=== PATIENT | male | born 1955 | race Caucasian/White ===

== ENCOUNTER 2016-12-26 08:41 | Observation (INO) | payer OTHER ==
[2016-12-26] MEDS ORDERED: SODIUM CHLORIDE 0.9% 1,000 ML IV STA (08:59)
[2016-12-26] MEDS ORDERED: NITROGLYCERIN SL TABS 0.4 MG TAB SUBLINGUAL STA (08:59)
--- NOTE | 2016-12-26 09:15 | ED ---
Chest Pain HPI - General Chief Complaint: Chest Pain Stated Complaint: CHEST TIGHTNESS,HYPERTENSION Time Seen by Provider: 12/26/16 08:50 Source: patient, RN notes reviewed Mode of arrival: wheelchair Limitations: no limitations - History of Present Illness Initial Comments: This is a 61-year-old male with a benign history other than vertigo who had the onset yesterday of just not feeling well and feeling tired well at work. He states today he noted his blood pressure was elevated was 189/123 normally he states is 120/65. He states he is retrosternal chest pressure was 5/10 severityof 4/10 does not really seem to get worse with exertion or better with any positional changes. He has no personal history of heart disease he is nonsmoker. He states there is a family history of hypertension and heart disease in his family with respect to his parents. He's had no cough fevers chills sweats or other symptoms. Some nausea perhaps no vomiting no abdominal pain MD Complaint: chest pain - Related Data Home Medications Medication Instructions Recorded Confirmed Aspirin 325 mg PO DAILY 12/26/16 12/26/16 Echinacea 500 mg PO DAILY PRN 12/26/16 12/26/16 Allergies Allergy/AdvReac Type Severity Reaction Status Date / Time No Known Allergies Allergy Verified 12/26/16 09:03 Review of Systems ROS Statement: Those systems with pertinent positive or pertinent negative responses have been documented in the HPI. ROS Other: All systems not noted in ROS Statement are negative. EKG Findings - EKG Results: EKG: interpreted by JERICHO WNL, sinus rhythm, normal axis, normal QRS, normal ST/ T, no acute changes (Normal sinus rhythm rate 62 VT interval 164 QRS duration 88 daily since QTC of 382/[address]-T wave changes.) Past Medical History Past Medical History: No Reported History History of Any Multi-Drug Resistant Organisms: None Reported Past Surgical History: Hernia Repair, Joint Replacement, Orthopedic Surgery Past Psychological History: No Psychological Hx Reported Smoking Status: Never smoker Past Alcohol Use History: None Reported Past Drug Use History: None Reported General Exam - General Exam Comments Initial Comments: This is a well-developed well-nourished awake alert oriented 3 male Limitations: no limitations General appearance: alert, in no apparent distress Head exam: Present: atraumatic, normocephalic, normal inspection Eye exam: Present: normal appearance, PERRL, EOMI. Absent: scleral icterus, conjunctival injection, periorbital swelling ENT exam: Present: normal exam, mucous membranes moist Neck exam: Present: normal inspection. Absent: tenderness, meningismus, lymphadenopathy Respiratory exam: Present: normal lung sounds bilaterally. Absent: respiratory distress, wheezes, rales, rhonchi, stridor Cardiovascular Exam: Present: regular rate, normal rhythm, normal heart sounds. Absent: systolic murmur, diastolic murmur, rubs, gallop, clicks GI/Abdominal exam: Present: soft, normal bowel sounds. Absent: distended, tenderness, guarding, rebound, rigid Extremities exam: Present: normal inspection, full ROM, normal capillary refill. Absent: tenderness, pedal edema, joint swelling, calf tenderness Back exam: Present: normal inspection Neurological exam: Present: alert, oriented X3, CN II-XII intact Psychiatric exam: Present: normal affect, normal mood Skin exam: Present: warm, dry, intact, normal color. Absent: rash Course Vital Signs 12/26/16 12/26/16 12/26/16 08:44 08:56 09:07 Temperature 98.3 F Pulse Rate 80 66 72 Respiratory 18 18 16 Rate Blood Pressure 192/95 165/100 156/99 O2 Sat by Pulse 98 98 94 L Oximetry 12/26/16 12/26/16 12/26/16 09:36 10:06 10:36 Temperature Pulse Rate 72 74 76 Respiratory 18 18 18 Rate Blood Pressure 138/86 130/80 138/77 O2 Sat by Pulse 96 94 L 95 Oximetry 12/26/16 11:06 Temperature Pulse Rate 74 Respiratory 18 Rate Blood Pressure 134/79 O2 Sat by Pulse 95 Oximetry - Reevaluation(s) Reevaluation #1: 12/26/16 12:09 Reevaluation the patient after nitroglycerin revealed improvement. Chest Pain MDM - MDM Review the x-ray shows no acute findings patient did seem to get relief from his nitroglycerin. He will be admitted for evaluation I did discuss the findings with the admitting hospitalist. Critical Care Time Critical Care Time: Yes Critical Care Time: 21 minutes of critical care time which includes initial history physical evaluation with labs and x-rays reevaluation the patient response to therapy. Discussion with patient family regarding the findings. Discussion with the admitting physician. Admission orders and documentation of the above. Disposition Clinical Impression: Chest pain, Unstable angina pectoris Disposition: ADMITTED IP TO THIS HOSP Condition: Stable
[2016-12-26 09:20] LABS: Basophils % (A) 1 %; CH 29.1; CHCM 35.4; Eosinophils # (A) 0.1 k/uL (0-0.7); Eosinophils % (A) 2 %; HCT 43.9 % (39.0-53.0); HDW 2.87; HGB 14.9 gm/dL (13.0-17.5); Luc # (Auto) 0.06; Luc % (Auto) 1; Lymphocytes % (A) 22 %; MCHC 33.9 g/dL (31.0-37.0); MCV 82.6 fL (80.0-100.0); Mean Platelet Volume 7.5; Monocytes # (A) 0.2 k/uL (0-1.0); Monocytes % (A) 5 %; Neutrophils # (A) 3.2 k/uL (1.3-7.7); Neutrophils % (A) 69 %; RBC 5.32 m/uL (4.30-5.90); RDW 12.6 % (11.5-15.5); WBC 4.6 k/uL (3.8-10.6); WBC (Perox) 4.65
[2016-12-26] MEDS ORDERED: NITROGLYCERIN OINT 1 INCH/GM PACKET TOPICAL STA (09:22)
--- NOTE | 2016-12-26 09:22 | XR ---
EXAMINATION TYPE: XR chest 2V DATE OF EXAM: 12/26/2016 9:14 AM COMPARISON: NONE HISTORY: Shortness of breath TECHNIQUE: Frontal and lateral views of the chest are obtained. FINDINGS: Scattered senescent parenchymal changes noted. Hyperinflation compatible with COPD. No evidence for infiltrate. No evidence for atelectasis. Heart size is stable. Mediastinal structures are stable and grossly unremarkable. No evidence for hilar prominence. Focal eventration left hemidiaphragm. IMPRESSION: 1. No evidence for acute pulmonary disease.
[2016-12-26 09:24] LABS: ALT 36 U/L (21-72); AST 27 U/L (17-59); Alkaline Phosphatase 70 U/L (38-126); Amylase 61 U/L (30-110); Anion Gap 12 mmol/L; Blood Urea Nitrogen 21 mg/dL (9-20); Calcium 9.2 mg/dL (8.4-10.2); Carbon Dioxide 25 mmol/L (22-30); Chloride 108 mmol/L (98-107); Glucose 99 mg/dL (74-99); Magnesium 1.7 mg/dL (1.6-2.3); Non-African American GFR(MDRD) >60 (>60 ml/min/1.73 sqM); Potassium 4.3 mmol/L (3.5-5.1); Sodium 145 mmol/L (137-145); Total Bilirubin 0.6 mg/dL (0.2-1.3); Total Protein 6.6 g/dL (6.3-8.2)
[2016-12-26 09:26] LABS: INR 1.1 (<1.1); Prothrombin Time 10.7 sec (9.0-12.0)
[2016-12-26 10:09] LABS: Creatine Kinase 232 U/L (55-170)
[2016-12-26 10:23] LABS: Troponin I <0.012 ng/mL (0.000-0.034)
[2016-12-26 10:35] LABS: Creatine Kinase MB 2.9 ng/mL (0.0-2.4)
[2016-12-26] MEDS ORDERED: NITROGLYCERIN SL TABS 0.4 MG TAB SUBLINGUAL PRN (12:10)
[2016-12-26] MEDS ORDERED: HEPARIN SODIUM,PORCINE 5,000 UNIT/ML 1 ML VIAL IV ONE (12:10)
[2016-12-26] MEDS ORDERED: SODIUM CHLORIDE 0.9% 1,000 ML IV SCH (12:15)
[2016-12-26] MEDS ORDERED: HEPARIN SODIUM,PORCINE/D5W PMX 25,000 UNIT in DEXTROSE/WATER 1 500ML.BAG IV SCH (12:15)
[2016-12-26] MEDS ORDERED: amLODIPine 5 MG TAB PO STA (14:48)
[2016-12-26 14:58] LABS: Creatine Kinase 176 U/L (55-170)
[2016-12-26 15:10] LABS: Creatine Kinase MB 2.3 ng/mL (0.0-2.4); Troponin I <0.012 ng/mL (0.000-0.034)
[2016-12-26] MEDS: NITROGLYCERIN OINT 1 INCH/GM PACKET TOPICAL SCH (19:26)
--- NOTE | 2016-12-26 19:32 | P.HPIM ---
History of Present Illness H&P Date: 12/26/16 61-year-old gentleman with no significant past medical history comes in to the hospital with this episode of chest pressure radiating to his neck patient stated that initially he thought it was GERD however he does not have a history of GERD in the past. States that it lasted for a prolonged period of time with concern for the pain patient came in the hospital for further evaluation. Initial EKG did not reveal any ST-T wave changes. Patient does have a significant family history of cardiac disease. Patient normally is able to ambulate without any difficulty or 2-3 blocks. Currently states that he symptom-free. Patient stated that since his onset of symptoms patient had the pain for about 12 hours no relieving or aggravating factors were reported in was mostly midsternal radiating to his neck Patient was started on IV heparin and triaged to observation unit. Review of Systems All systems: negative (Noted in HPI) Past Medical History Past Medical History: No Reported History Additional Past Medical History / Comment(s): Vertigo, low back pain, L ear had viral infection which caused hearing damage-hear little with this ear. History of Any Multi-Drug Resistant Organisms: None Reported Past Surgical History: Hernia Repair, Orthopedic Surgery Additional Past Surgical History / Comment(s): R inguinal hernia repair, R ankle fracture with ORIF, R shoulder arthroscopy, R knee arthroscopy, R thumb surgery. Past Psychological History: No Psychological Hx Reported Additional Psychological History / Comment(s): Pt resides with his spouse. He is independent. Smoking Status: Never smoker Past Alcohol Use History: None Reported Past Drug Use History: None Reported - Past Family History Father Family Medical History: Myocardial Infarction (NV) Additional Family Medical History / Comment(s): Father had a NV in his 60's. Mother Family Medical History: CVA/TIA, Hypertension Additional Family Medical History / Comment(s): Mother had heart problems. She had a CVA in her 50's. She at the age of 76yrs. Medications and Allergies Home Medications Medication Instructions Recorded Confirmed Type Aspirin 325 mg PO DAILY 12/26/16 12/26/16 History Echinacea 500 mg PO DAILY PRN 12/26/16 12/26/16 History Allergies Allergy/AdvReac Type Severity Reaction Status Date / Time No Known Allergies Allergy Verified 12/26/16 09:03 Physical Exam Vitals: Vital Signs Temp Pulse Pulse Resp BP BP Pulse Ox 12/26/16 15:01 18 12/26/16 13:10 98.4 F 77 18 143/84 95 12/26/16 12:24 98.3 F 79 18 134/81 94 L Intake and Output 12/26/16 12/26/16 12/26/16 06:59 14:59 22:59 Other: Weight 91.9 kg Patient Weight 12/27/16 06:59 Weight 91.9 kg Physical exam Gen. appearance oriented 3 in no distress Neck is supple no JVD Lungs good air entry clear to auscultation no rhonchi or wheezing Heart S1-S2 heard regular rate and rhythm no murmurs appreciated Abdomen is soft nontender no organomegaly bowel sounds are intact Neurologically cranial nerves II-12 grossly intact no focal motor or sensory deficits noted Skin no abnormalities appreciated Results CBC & Chem 7: 12/26/16 08:08 12/26/16 08:08 Labs: Abnormal Lab Results - Last 24 Hours (Table) 12/26/16 Range/Units 14:28 Total Creatine Kinase 176 H (55-170) U/L Thrombosis Risk Factor Assmnt - Choose All That Apply Any of the Below Risk Factors Present?: Yes Each Factor Represents 1 point: Age 41-60 years, Obesity (BMI >25) Other Risk Factors: No Other congenital or acquired thrombophilia - If yes, enter type in comment: No Thrombosis Risk Factor Assessment Total Risk Factor Score: 2 Thrombosis Risk Factor Assessment Level: Low Risk Assessment and Plan Plan: #1 atypical chest pain rule out ACS #2 suspicion for GERD Plan However even with suspicion of GERD with patient having some risk factors which include family history. ACS needs to be ruled out cardiac enzymes will be done. A cardiac consult will be of pain in regards to have an a stress test. Once that's done patient can likely be discharged in the next 24 hours. Pepcid 20 mg IV twice a day.
[2016-12-26 19:58] LABS: Creatine Kinase 162 U/L (55-170)
[2016-12-26 20:10] LABS: Creatine Kinase MB 1.8 ng/mL (0.0-2.4); Troponin I <0.012 ng/mL (0.000-0.034)
[2016-12-26] MEDS ORDERED: HEPARIN SODIUM,PORCINE 5,000 UNIT/ML 1 ML VIAL IV PRN (21:22)
[2016-12-27] MEDS: NITROGLYCERIN OINT 1 INCH/GM PACKET TOPICAL SCH ×2 (01:45→06:36)
[2016-12-27] MEDS: FAMOTIDINE 20 MG TAB PO SCH ×3 (01:45→19:59)
[2016-12-27 08:12] LABS: Cholesterol 167 mg/dL (<200); HDL Cholesterol 47 mg/dL (40-60); Triglycerides 115 mg/dL (<150)
[2016-12-27] MEDS ORDERED: ASPIRIN 325 MG TAB PO SCH (09:00)
[2016-12-27] MEDS ORDERED: LOSARTAN 25 MG TAB PO SCH (12:15)
--- NOTE | 2016-12-27 12:32 | CONS ---
DATE OF CONSULTATION: Mr. Frye is a 61-year-old male patient who started experiencing pressure and tightness in the left pectoral area, close to his shoulder area and under the left clavicle. He took his blood pressure and it was very high. This is unusual for him. He normally does not have high blood pressure. Repeat blood pressure measurements were high and he continued to have the discomfort so he came to the hospital. His 12-lead ECG upon admission was completely normal. There are no ST segment abnormalities, but his blood pressure was definitely elevated. His first blood pressure was 192/97 mmHg and 165/100 mmHg. Subsequently 156/99 and now it is more in the normal range. He denied any stressful events recently. REVIEW OF SYSTEMS: No fever, chills, rigors. No cough or expectoration. No nausea, vomiting or diarrhea. No hematuria or dysuria. No strokes or seizures. No skin lesions or musculoskeletal complaints. MEDICATIONS: None. He denies any diabetes. He denies a history of hypertension, denies dyslipidemia. He does take an aspirin. PAST SURGERIES: Hernia repair and joint replacement. SOCIAL HISTORY: He is a never smoker. On examination, his blood pressure is in 130s now, heart rates are normal. He is afebrile 98.1. Head and neck examination is normal. Heart sounds are normal. No chest wall tenderness. Abdomen is soft, nontender. Extremities are warm. No edema. IMPRESSION: 1. Elevated blood pressure with symptoms of chest tightness and without any ECG changes. Cardiac enzymes are normal. Labs are normal. Potassium is normal. Renal function is normal. Hemoglobin is normal. 2. His HDL is 47, nonproductive. LDL is 97, total cholesterol 167, triglycerides 115. SUGGEST: Blood pressure control, stop heparin, stop nitro paste, stop full aspirin, stop all IV fluids and Hep-Lock. He is on one dose of p.o. amlodipine. I would suggest treating him with 25 mg of losartan or 5 mg of amlodipine, either one is fine and definitely reduce the dose of aspirin to 81 mg p.o. daily for now. The fact that his blood pressure is completely normal and stays normal, aspirin may even be withheld. This gentleman has not had an acute myocardial infarction. He should be able to go home tomorrow if his blood pressure is normal and then I will follow him as an outpatient. I will also check a TSH level and a cortisol level, Specifically, his potassium was normal.
--- NOTE | 2016-12-27 20:23 | P.PN ---
Subjective 61-year-old gentleman with no significant past medical history comes in to the hospital with this episode of chest pressure radiating to his neck patient stated that initially he thought it was GERD however he does not have a history of GERD in the past. States that it lasted for a prolonged period of time with concern for the pain patient came in the hospital for further evaluation. Initial EKG did not reveal any ST-T wave changes. Patient does have a significant family history of cardiac disease. Patient normally is able to ambulate without any difficulty or 2-3 blocks. Currently states that he symptom-free. Patient stated that since his onset of symptoms patient had the pain for about 12 hours no relieving or aggravating factors were reported in was mostly midsternal radiating to his neck y a Patient was started on IV heparin and triaged to observation unit. 12/27/16 Pt was given a dose of norvasc on admission . Changed to losartan at this time. Heaprin was discontinued. Denies having any additional complaints. Objective - Vital Signs Vital signs: Vital Signs Temp 98.2 F 12/27/16 15:54 Pulse 72 12/27/16 16:00 Resp 16 12/27/16 16:00 BP 154/90 12/27/16 15:54 Pulse Ox 97 12/27/16 15:54 Intake & Output 12/27/16 12/27/16 12/28/16 06:59 18:59 06:59 Intake Total 223 500 Balance 223 500 Intake: Intake, IV Titration 223 Amount Heparin Sodium,Porcine/ 223 D5w Pmx 25,000 unit In Dextrose/Water 1 500ml. bag @ 10.9 UNITS/KG/HR 20 .07 mls/hr IV .Q24H NIEVES Rx#:[id number] Oral 500 Other: Voiding Method Toilet Toilet # Voids 0 - Exam Gen; alert oriented times 3, in no distress Lungs CTA b/l, no rhonchi, wheezing, or crackles HEart RRR< no murmurs appreciated. Abdomen soft non tender no organomegaly. Neuro cranial nerves intact, no focal motor or sensory deficits ntoed. Lower extremities no edema noted. - Labs CBC & Chem 7: 12/26/16 08:08 12/26/16 08:08 Assessment and Plan Plan: #1 atypical chest pain rule out ACS #2 suspicion for GERD # 3 Accelerated HTN Plan Moniter Bp for another 24 hrs as recommended by cardiology ACS is ruled out. D/c home padma.
[2016-12-28 08:14] VITALS: RESP 18
[2016-12-28] MEDS: FAMOTIDINE 20 MG TAB PO SCH (08:51)
[2016-12-28] MEDS ORDERED: LOSARTAN 25 MG TAB PO SCH (09:00)
[2016-12-28 12:38] VITALS: BP 154/98; PULSE 72; TEMP 98.9
--- NOTE | 2016-12-28 17:33 | P.DS ---
Providers Date of admission: 12/26/16 12:11 Attending physician: Enzo Torres MD Primary care physician: [facility] Course: 61-year-old gentleman with no significant past medical history comes in to the hospital with this episode of chest pressure radiating to his neck patient stated that initially he thought it was GERD however he does not have a history of GERD in the past. States that it lasted for a prolonged period of time with concern for the pain patient came in the hospital for further evaluation. Initial EKG did not reveal any ST-T wave changes. Patient does have a significant family history of cardiac disease. Patient normally is able to ambulate without any difficulty or 2-3 blocks. Currently states that he symptom-free. Patient stated that since his onset of symptoms patient had the pain for about 12 hours no relieving or aggravating factors were reported in was mostly midsternal radiating to his neck y a Patient was started on IV heparin and triaged to observation unit. 12/27/16 Pt was given a dose of norvasc on admission . Changed to losartan at this time. Heaprin was discontinued. Denies having any additional complaints. Gen; alert oriented times 3, in no distress Lungs CTA b/l, no rhonchi, wheezing, or crackles HEart RRR< no murmurs appreciated. Abdomen soft non tender no organomegaly. Neuro cranial nerves intact, no focal motor or sensory deficits ntoed. Lower extremities no edema noted. - Labs CBC & Chem 7: 12/26/16 08:08 12/26/16 08:08 Assessment and Plan Plan: #1 atypical chest pain rule out ACS #2 suspicion for GERD # 3 Accelerated HTN Right shoulder supraspinatus tendinitis. ACS was ruled out. Patient was started on losartan 25 mg initially however patient had some isolated blood pressures that were elevated and it was felt that patient's losartan will be increased to 25 mg by mouth twice a day. Patient will follow up with cardiology. symptom-free was able to ambulate without any difficulty and Patient's blood pressure was stable on discharge. . Patient Condition at Discharge: Stable Plan - Discharge Summary Discharge Medication List Aspirin 325 mg PO DAILY 12/26/16 [History] Echinacea 500 mg PO DAILY PRN 12/26/16 [History] Losartan [Cozaar] 25 mg BID 12/28/16 [History] Follow up Appointment(s)/Referral(s): Walt Mena MD [STAFF PHYSICIAN] - (Office will call you with a follow up appointment with Dr. Mena) Ascencion Connolly DO [Primary Care Provider] - 1-2 days Discharge Disposition: HOME SELF-CARE
== END 2016-12-28 15:56 | disposition home or self-care (01) ==
LOC: EC 08:41 → 3OBS 12:11
PROVIDERS: ADMIT Internal Medicine; ATTEND Internal Medicine
DX: R07.89 Other chest pain (principal); I10 Essential (primary) hypertension; M75.81 Other shoulder lesions, right shoulder; Z79.82 Long term (current) use of aspirin; Z82.3 Family history of stroke; Z82.49 Family history of ischemic heart disease and other diseases of the circulatory system
CPT/HCPCS: 36415; 93005; 85379; 83880; 80061; 80053; 84443; 82533; 82150; 82550; 82553; 83690; 83735; 84484; 85025; 85610; 85730; 71020; 99291; 96365; 96376; 96361; G0378 ×3; J1644 ×2; 96366

== ENCOUNTER → 2018-11-12 | Outpatient (CLI) | payer BC ==
--- NOTE | 2018-11-12 14:48 | XR ---
EXAMINATION TYPE: XR chest 2V DATE OF EXAM: 11/12/2018 COMPARISON: 12/26/2016 INDICATION: Short of breath, cough TECHNIQUE: Frontal and lateral views of the chest are obtained. FINDINGS: The heart size is normal. The pulmonary vasculature is normal. The lungs are clear. There is mild elevation of the lateral left diaphragm. This is chronic. IMPRESSION: 1. No acute pulmonary process.
== END | disposition home or self-care (01) ==
LOC: RADXRYALE 14:10
PROVIDERS: ATTEND Physician Assistant Medical
DX: R05 Cough (principal); R06.02 Shortness of breath
CPT/HCPCS: 71046

== ENCOUNTER → 2019-07-28 | Outpatient (CLI) | payer BC ==
--- NOTE | 2019-07-28 16:46 | XR ---
PROCEDURE: XR cervical spine comp - 5V DATE AND TIME: 07/28/2019 4:24 PM CLINICAL INDICATION: [facility]; [id number] CERVICALGIA,NINA SHLD PAIN TECHNIQUE: Department protocol COMPARISON: None FINDINGS: There is no fracture or focal skeletal lesion. Multilevel moderately advanced cervical spondylosis changes are noted, most advanced at the C6-7 and C7-T1 levels, but also impressive at the C5-6 and C4-5 and C3-4 levels. At C3-4 there is 2 mm retroli sthesis of C3 with respect to C3-4, appearing degenerative in etiology. No other malalignment. The soft tissues are unremarkable. IMPRESSION: NO ACUTE PROCESS.
== END | disposition home or self-care (01) ==
LOC: RADXRYALE 16:15
PROVIDERS: ATTEND Physician Assistant Medical
DX: M54.2 Cervicalgia (principal)
CPT/HCPCS: 72050

== ENCOUNTER → 2019-08-12 | Outpatient (CLI) | payer BC ==
--- NOTE | 2019-08-12 22:52 | MR ---
MRI CERVICAL SPINE: CLINICAL HISTORY: Cervicalgia and radiculopathy. TECHNIQUE: Multiplanar, multisequence imaging of the cervical spine is performed without IV contrast. COMPARISON cervical spine x-ray July 28, 2019. FINDINGS: Sagittal images of the cervical spine show the craniocervical junction to appear within nor mal limits. There is grade 1 retrolisthesis of C3 on C4. Spondylolisthesis along with disc herniation and uncovertebral facet arthropathy causes most prominent spinal canal stenosis at this level sagitt al image 9, small focus of increased signal in the spinal cord superior C4 level is seen. The vertebr al body heights are normal. Mild to moderate disc space narrowing C3-C4 level is present. The bone m arrow signal intensity is within normal limits. Axial images at the C2-C3 level shows right precentral disc protrusion effacing the anterior thecal s ac and bilateral neural foramina are patent. Axial images at C3-C4 level show vertebral facet degenerative changes bilaterally along with spondylo listhesis and broad-based posterior disc protrusion, there is effacement of anterior thecal sac and m oderate to advanced bilateral neural foraminal narrowing. Slight flattening of the cord with increase d signal is noted on axial images. Axial images at C4-C5 level showed broad based right paracentral/central disc protrusion and right-si ded uncovertebral facet degenerative changes, there is effacement of the anterolateral thecal sac and fairly advanced right-sided neural foraminal narrowing. There is [id number] left-sided neural foraminal narrowing felt present. Axial images at C5-C6 level showed broad based left paracentral/foraminal disc protrusion effacing ve ntral thecal sac and causing advanced left-sided neural foraminal narrowing. Axial images at the C6-C7 levels show broad-based posterior disc protrusion mildly facing anterior th ecal sac and causing mild right and moderate to advanced left-sided neural foraminal narrowing. Axial images at C7-T1 level show right foraminal disc protrusion effacing the anterolateral thecal sa c and causing asymmetric moderate right-sided neural foraminal narrowing. IMPRESSION: Multilevel degenerative changes in cervical spine as detailed above. Attention to C3-C4 l evel where most prominent findings are noted, some mass effect on cord is felt present.
== END | disposition home or self-care (01) ==
LOC: RADMRIMAIN 19:10
PROVIDERS: ATTEND Physician Assistant Medical
DX: M47.22 Other spondylosis with radiculopathy, cervical region (principal); M53.82 Other specified dorsopathies, cervical region
CPT/HCPCS: 72141

== ENCOUNTER → 2019-10-22 | Outpatient (CLI) | payer OTHER ==
--- NOTE | 2019-10-22 11:06 | XR ---
EXAMINATION TYPE: XR chest 2V DATE OF EXAM: 10/22/2019 COMPARISON: 11/12/2018 HISTORY: Shortness of breath TECHNIQUE: Frontal and lateral views of the chest are obtained. FINDINGS: Scattered senescent parenchymal changes noted. Hyperinflation compatible with COPD. No evidence for infiltrate. No evidence for atelectasis. Chronic elevation left hemidiaphragm. Heart size is stable. Mediastinal structures are stable and grossly unremarkable. No evidence for hilar prominence. Degenerative changes dorsal spine. IMPRESSION: 1. No evidence for acute pulmonary disease.
== END | disposition home or self-care (01) ==
LOC: RADXRYALE 10:25
PROVIDERS: ATTEND Physician Assistant Medical
DX: Z01.811 Encounter for preprocedural respiratory examination (principal)
CPT/HCPCS: 71046

== ENCOUNTER 2019-11-02 11:32 | Day surgery (SDC) | payer BC, OTHER ==
[2019-10-26 14:33] VITALS: BMI 26.0
[~2019-11-02 11:32] MED LIST: BACITRACIN 50,000 UNIT, POLYMYXIN B 500,000 UNIT in SODIUM CHLORIDE 0.9% IRRIGATIO 1,00... IRRIGATION ONE; HYDROmorphone 0.5 MG/0.5 ML SYRINGE IVP PRN; LIDOCAINE 1% 20 ML VIAL (10MG/ML) FOR IV START INTRADERMA PRN; ONDANSETRON 4 MG/2 ML VIAL IVP ONE
[2019-11-02] MEDS: LACTATED RINGERS 1,000 ML IV SCH (12:20)
[2019-11-02] MEDS ORDERED: SCOPOLAMINE 1.5MG/72HR PATCH TRANSDERM ONE (12:28)
[2019-11-02] MEDS ORDERED: NEOSTIGMINE 1 MG/ML 10 ML VIAL ONE (12:30)
[2019-11-02] MEDS ORDERED: MIDAZOLAM 2 MG/2 ML VIAL ONE (12:30)
[2019-11-02] MEDS ORDERED: PROPOFOL 10 MG/ML 20 ML VIAL IV ONE (12:30)
[2019-11-02] MEDS ORDERED: fentaNYL (PF) 50 MCG/ML 2 ML AMP ONE (12:30)
[2019-11-02] MEDS ORDERED: WATER FOR INJECTION, STERILE 10 ML VIAL IV ONE (12:30)
[2019-11-02] MEDS ORDERED: GLYCOPYRROLATE 0.2 MG/ML 2 ML VIAL ONE (12:30)
[2019-11-02] MEDS ORDERED: ePHEDrine SULFATE/0.9% NACL/PF 50 MG/5 ML SYRINGE IV ONE (12:30)
[2019-11-02] MEDS ORDERED: DEXAMETHASONE SOD PHOS (MDV) 100 MG/10 ML VIAL ONE (12:30)
[2019-11-02] MEDS ORDERED: HYDROmorphone (PF) 1 MG/ML ONE (12:30)
[2019-11-02] MEDS ORDERED: LIDOCAINE 1% INJ 10MG/ML (20 ML MDV) ONE (12:30)
[2019-11-02] MEDS ORDERED: ROCURONIUM BROMIDE 10 MG/ML 10 ML VIAL IV ONE (12:30)
[2019-11-02] MEDS ORDERED: PHENYLEPHRINE-0.9% NACL SYG 1 MG/10 ML SYRINGE ONE (12:30)
[2019-11-02] MEDS ORDERED: SUCCINYLCHOLINE CHLORIDE 100 MG/5 ML SYR IV ONE (12:30)
[2019-11-02] MEDS ORDERED: GELATIN SPONGE,ABSORB (SMALL) 1 EACH SPONGE TOPICAL ONE (13:16)
[2019-11-02] MEDS ORDERED: BUPIVACAINE-EPI 0.5%-1:200,000 10 ML VIAL SQ ONE ×2 (13:16→15:07)
[2019-11-02] MEDS ORDERED: THROMBIN (BOVINE) 5,000 UNIT VIAL TOPICAL ONE (13:17)
[2019-11-02] MEDS ORDERED: LACTATED RINGERS 1,000 ML IV ONE (13:45)
--- NOTE | 2019-11-02 14:21 | XR ---
EXAMINATION TYPE: XR cervical spine 1V DATE OF EXAM: 11/02/2019 COMPARISON: MRI cervical spine August 12, 2019. HISTORY: Neck pain. TECHNIQUE: Single crosstable lateral view of cervical spine is obtained intraoperatively. FINDINGS: Exam is for surgical planning and not for diagnostic purposes. Persistent grade 1 retrolist hesis C3 on C4. Metallic pointer noted at C3-C4 disc space level. IMPRESSION: As above.
--- NOTE | 2019-11-02 15:13 | XR ---
EXAMINATION TYPE: XR cervical spine 1V DATE OF EXAM: 11/02/2019 COMPARISON: MRI cervical spine August 12, 2019. Cervical spine x-ray earlier today HISTORY: Hardware placement, cervical fusion. TECHNIQUE: Single crosstable lateral view of cervical spine is obtained immediately postoperatively. FINDINGS: There is anterior fusion plate now present C3-C6 levels with artificial rectangular disc ma terial anteriorly in the disc spaces. Persistent moderate disc space narrowing C6-C7 level. Alignment is stable. Overlying ET tube noted. IMPRESSION: As above.
[2019-11-02] MEDS ORDERED: HYDROmorphone 1 MG/ML 1 ML SYRINGE IVP PRN (15:29)
[2019-11-02] MEDS ORDERED: MAGNESIUM HYDROXIDE 2,400 MG/10 ML CUP PO PRN (15:29)
[2019-11-02] MEDS ORDERED: BENZOCAINE/MENTHOL LOZENG 1 EACH LOZENGE MUCOUS MEM PRN (15:29)
[2019-11-02] MEDS ORDERED: HYDROmorphone 0.5 MG/0.5 ML SYRINGE IVP PRN (15:29)
[2019-11-02] MEDS ORDERED: ONDANSETRON 4 MG/2 ML VIAL IVP PRN (15:30)
[2019-11-02] MEDS ORDERED: ACETAMINOPHEN TAB 325 MG TAB PO PRN (15:30)
[2019-11-02] MEDS ORDERED: HYDROcodone/APAP 5-325MG 1 EACH TAB PO PRN (15:30)
--- NOTE | 2019-11-02 15:36 | P.OP ---
Date of Procedure: 11/02/19 Preoperative Diagnosis: Cervical myelopathy, severe cervical stenosis C3 4 C4 5 C5 6, cervical myelomalacia, upper extremity weakness, cervical radiculopathy, degenerative disc disease Postoperative Diagnosis: Cervical myelopathy, severe cervical stenosis C3 4 C4 5 C5 6, cervical m yelomalacia, upper extremity weakness, cervical radiculopathy, degenerative disc disease Anesthesia: GETA Pathology: none sent Condition: stable Disposition: PACU Description of Procedure: BRIEF OPERATIVE NOTE Preoperative Diagnosis:Cervical myelopathy, severe cervical stenosis C3 4 C4 5 C5 6, cervical myelomalacia, upper extremity weakness, cervical radiculopathy, degenerative disc disease Postoperative Diagnosis:Cervical myelopathy, severe cervical stenosis C3 4 C4 5 C5 6, cervical myelomalacia, upper extremity weakness, cervical radiculopathy, degenerative disc disease Procedure: Anterior cervical decompression with discectomy and fusion C3 4 C4 5 C5 6 Placement of interbody graft C3 4 C4 5 C5 6 Application of anterior cervical plate C3 4 5 6 Surgeon: Dr. Davila Radiology Director: Additional Surgical scrub nurse as an virtual assistant for advertisers Anesthesia: General anesthesia per Dr. Gonzáles Estimated blood loss: Approximately 100 mL Complications: None apparent Components implanted: K2M Seeley anterior cervical plate system with a 63 mm plate with 8 screws and Vikos interbody allograft bone graft with 1 mL of DBX bone putty Disposition: To recovery room in good stable condition. OPERATIVE INDICATIONS The patient has had long-standing issues in their neck and upper extremities. He's been having significant worsening with his function is upper extremities and some pain and weakness at his upper extremities and neck. He was found have severe cervical stenosis with evidence of cervical myelopathy and myelomalacia. He had severe stenosis at C3 4 C4 5 and C5 6 which correlated well with his neck and upper extremity symptoms. The patient has been through conservative treatment. Despite conservative treatment he was having worsening of his overall symptoms. We discussed various treatment options including surgery, and the patient wishes to proceed with surgery We discussed the risk, patient's alternatives and benefits of surgery including but not limited to, risk of bleeding risk of infection, risk of need for further surgery, risk of decreased, loss of motion, muscle function, malunion nonunion, hardware failure, nerve damage, paralysis, heart attack, and . OPERATIVE SUMMARY After discussing all the risks, patient alternatives and benefits at length, the patient elected to proceed with surgical intervention, signed informed consent, and presented for their procedure. The patient was seen and examined in the pre operative holding area and the surgical site was marked. The patient was given antibiotics and brought to the operating room. The patient was positioned on the operating room table in a supine position being careful to pad any bony prominences and pressure points. The patient was sedated and intubated by anesthesia in standard fashion. Once the airway and C- spine were stabilized the patient's arms were padded and tucked at her side, with her shoulders gently taped. The head was placed in a donut pad with the neck in good neutral alignment and position. We were careful to maintain the patient's cervical spine and good neutral alignment and position throughout. The patient was prepped and draped in a normal standard fashion. An appropriate timeout and keystone protocol performed. We were able to proceed with the surgery. The local wound area was infiltrated with local anesthetic. An incision was made transversely approximately 2-1/2 cm over the appropriate levels at C4 5. Dissection was taken down subcutaneously to the level of the platysma which was split in line with its fibers. Dissection was taken with a carotid approach, with the trachea and esophagus medial and the carotid sheath laterally. We dissected down to the anterior surface of the vertebral bodies. Intraoperative x-ray was taken which showed a marker at the appropriate level at C5 3 4. With the appropriate level positively confirmed, we were able to proceed with discectomy at the appropriate levels. I started first at C3 4 and then moved to C4 5 and C5 6. All of the operative levels were exposed appropriately. The patient had all their twitches back, and there was no evidence of recurrent laryngeal issue. The wound was copiously irrigated and suctioned dry as had been done periodically throughout the case. At the appropriate level/levels, starting first at C3 4 and the moving C4 5 and C5 6 I established an annulotomy with an 11 blade scalpel. A discectomy was performed with a combination of pituitary rongeurs, curettes, a high-speed bur, and Kerrison rongeurs. The posterior longitudinal ligament was taken down as were any posterior osteophytes. There was severe central and bilateral foraminal stenosis at each level most severely at C3 4. The decompression with discectomy and removal of the posterior ledge ligament and posterior osteophytes was performed at each level. This gave good central and bilateral foraminal decompression. There is no evidence of any dural tear or leak. The endplates were prepared with a high-speed bur. With the endplates in good parallel po sition, I was able to size for the appropriate size interbody graft. The wound was irrigated and suctioned dry the graft was prepared and malleted into position. It had good alignment and position with the anterior surface flush with the anterior surface of the vertebral bodies. This was done similarly the appropriate levels at C3 4 C4 5 and C5 6. With the grafts intact, I was able to measure and contour and appropriate sized plate. The plate was positioned at the midline over the appropriate levels from C3 to C6. Screw holes were established with a hand drill and drill guide. Screws were placed in good alignment and position with excellent bony purchase. They were seated under the locking device. The construct was checked and found to be stable. Intraoperative x-ray was taken which showed good alignment and position of the implants at the appropriate levels. There was no evidence of any dural tear or leak. Good hemostasis was maintained. The wound was copiously irrigated and suctioned dry as had been done periodically throughout the case. The platysma was closed with absorbable suture. The subcutaneous tissue was closed. The subcuticular tissue was closed with absorbable suture. The wound was cleaned and dried and dressed appropriately. A soft cervical collar was placed appropriately. The patient was woken up by anesthesia, extubated, transferred back gently to their hospital bed and brought to the recovery room in good stable condition. The patient will be admitted to the hospital for appropriate postoperative care, medical management and monitoring. We will continue to follow them closely about the postoperative course.
[2019-11-02] MEDS: SODIUM CHLORIDE 0.9% 1,000 ML IV SCH (16:36)
[2019-11-02 17:59] VITALS: RESP 15
[2019-11-02] MEDS: ATORVASTATIN 10 MG TAB PO SCH ×2 (20:29→20:38)
[2019-11-02] MEDS: LOSARTAN 25 MG TAB PO SCH ×2 (20:30→20:37)
[2019-11-03 03:24] VITALS: TEMP 98.6
[2019-11-03] MEDS: SODIUM CHLORIDE 0.9% 1,000 ML IV SCH (04:04)
[2019-11-03] MEDS: LACTATED RINGERS 1,000 ML IV SCH (04:06)
[2019-11-03 06:20] VITALS: BP 114/67; PULSE 79
[2019-11-03] MEDS: LOSARTAN 25 MG TAB PO SCH (07:11)
[2019-11-03] MEDS ORDERED: SENNOSIDES-DOCUSATE SODIUM 1 EACH TAB PO SCH (09:00)
[2019-11-03] MEDS ORDERED: ASPIRIN 81 MG PO SCH (09:00)
== END 2019-11-03 13:00 | disposition home or self-care (01) ==
LOC: OR 11:32 → 4SSUR 15:09 → OR 11-03 13:00
PROVIDERS: ATTEND Orthopaedic Surgery Orthopaedic Surgery of the Spine
DX: M50.01 Cervical disc disorder with myelopathy, high cervical region (principal); M50.11 Cervical disc disorder with radiculopathy, high cervical region; M48.02 Spinal stenosis, cervical region; G95.89 Other specified diseases of spinal cord; M43.12 Spondylolisthesis, cervical region; I10 Essential (primary) hypertension; H91.90 Unspecified hearing loss, unspecified ear; R26.81 Unsteadiness on feet; R42 Dizziness and giddiness; R51 Headache; E78.2 Mixed hyperlipidemia; Z79.899 Other long term (current) drug therapy; Z79.82 Long term (current) use of aspirin; Z98.890 Other specified postprocedural states; Z88.8 Allergy status to other drugs, medicaments and biological substances; Z87.81 Personal history of (healed) traumatic fracture; Z82.49 Family history of ischemic heart disease and other diseases of the circulatory system
CPT/HCPCS: 22551; 22552 ×2; 22845; 20930; 20931; 86900; 86901; 86850; 72020; 36415; C1713 ×2; C1762; J2250; J2710; J0690 ×2; J2405; J2001; J3010; J1170; J1100; J2370; J0330; J2704

== ENCOUNTER → 2020-04-13 | Outpatient (CLI) | payer OTHER ==
--- NOTE | 2020-04-13 10:18 | XR ---
EXAMINATION TYPE: XR shoulder complete LT DATE OF EXAM: 04/13/2020 CLINICAL HISTORY: pain COMPARISON: NONE TECHNIQUE: Three views of the left shoulder are obtained. FINDINGS: There is no acute fracture/dislocation evident. The acromioclavicular and glenohumeral josy int spaces appear within normal limits. The visualized ribs are intact and unremarkable. IMPRESSION: 1. There is no acute fracture or dislocation. ICD 10 NO FRACTURE, INITIAL EVALUATION
== END | disposition home or self-care (01) ==
LOC: RADXRYALE 09:36
PROVIDERS: ATTEND Physician Assistant Medical
DX: M25.512 Pain in left shoulder (principal); W01.0XXD Fall on same level from slipping, tripping and stumbling without subsequent striking against object, subsequent encounter

== ENCOUNTER → 2023-10-30 | Outpatient (CLI) | payer MEDICARE ==
--- NOTE | 2023-10-30 18:56 | CT ---
EXAMINATION TYPE: CT brain wo con CT DLP: 1133.3 mGycm, Automated exposure control for dose reduction was used. DATE OF EXAM: 10/30/2023 4:32 PM COMPARISON: None. CLINICAL INDICATION:Male, 67 years old with history of R29.6 REPEAT FALLS R42 DIZZINESS GIDDINESS, di zziness while laying down x months TECHNIQUE: Brain: Axial CT images of the brain were obtained with coronal and sagittal reformats created and rev iewed. Contrast used: None. Oral contrast used: None. FINDINGS: Brain: Extra-axial spaces: No abnormal extra-axial fluid collections. Ventricular system: Within normal limits Cerebral parenchyma: No acute intraparenchymal hemorrhage or mass effect. The ross-white junction is well differentiated. Cerebellum: Unremarkable. Mass effect: No evidence of midline shift. Intracranial vasculature: unremarkable Soft tissues: Normal. Calvarium/osseous structures: No depressed skull fracture. Paranasal sinuses and mastoid air cells: Mild scattered paranasal sinus disease. Visualized orbits: Orbital contents are intact. IMPRESSION: No acute intracranial process.
== END | disposition home or self-care (01) ==
LOC: RADCTMAIN 15:34
PROVIDERS: ATTEND Family Medicine
DX: R29.6 Repeated falls (principal); R42 Dizziness and giddiness
CPT/HCPCS: 70450

== ENCOUNTER → 2023-12-23 | Outpatient (CLI) | payer MEDICARE ==
--- NOTE | 2023-12-23 16:13 | XR ---
EXAMINATION TYPE: XR wrist complete LT DATE OF EXAM: 12/23/2023 COMPARISON: NONE HISTORY: 68-year-old male [id number], [id number] LT WRIST PAIN, FALL TECHNIQUE: 4 views FINDINGS: Mild degenerative change first CMC joint. The radiocarpal and distal radial ulnar joint as well as th e midcarpal compartment are intact. No acute fracture, subluxation, dislocation is seen. Moderate deg enerative change second MCP joint and mild at the first and third MCP joint. IMPRESSION: 1. Mild osteoarthritic change at the basal joint of the thumb as well as the first and third MCP join ts. More moderate OA at the second MCP joint. 2. No acute osseous abnormality seen.
== END | disposition home or self-care (01) ==
LOC: RADXRYALE 10:55
PROVIDERS: ATTEND Physician Assistant Medical
DX: M19.042 Primary osteoarthritis, left hand (principal); W01.0XXA Fall on same level from slipping, tripping and stumbling without subsequent striking against object, initial encounter

== ENCOUNTER → 2024-10-06 | Outpatient (CLI) | payer MEDICARE ==
--- NOTE | 2024-10-06 16:24 | XR ---
EXAMINATION TYPE: XR shoulder complete LT DATE OF EXAM: 10/06/2024 4:18 PM COMPARISON: None CLINICAL INDICATION: Male, 68 years old with history of [id number] LT SHLD PAIN,FALL; [facility] TECHNIQUE: XR shoulder complete LT; examined in AP, internally rotated and scapular Y projections. FINDINGS: No evidence of acute osseous pathology, joint dislocation, or soft tissue swelling. The remaining po rtions of the visualized chest are unremarkable. Degeneration changes of the acromion, distal clavic le with osteophyte formation. There is osteophyte formation of the glenoid and humeral head. There is joint space narrowing of glenohumeral joint. IMPRESSION: 1. No acute osseous pathology. 2. Mild shoulder osteoarthrosis. [facility], , 10/06/2024 4:21 PM
== END | disposition home or self-care (01) ==
LOC: RADXRYALE 16:03
PROVIDERS: ATTEND Physician Assistant Medical
DX: M19.012 Primary osteoarthritis, left shoulder (principal); W01.0XXA Fall on same level from slipping, tripping and stumbling without subsequent striking against object, initial encounter

== ENCOUNTER → 2025-02-26 | Outpatient (CLI) | payer MEDICARE ==
--- NOTE | 2025-02-26 11:22 | XR ---
EXAMINATION TYPE: XR hand complete LT DATE OF EXAM: 02/26/2025 CLINICAL INDICATION: Male, 69 years old with history of [id number] LT HAND PAIN, pain TECHNIQUE: Frontal, lateral and oblique images of the left are obtained. COMPARISON: None. FINDINGS: There is no acute fracture/dislocation evident in the left hand. Moderate narrowing throug hout the PIP and DIP joints of the phalanges and mild to moderate narrowing second MCP joint. There i s moderate narrowing and spurring at the first interphalangeal joint. There is narrowing at the radio carpal joint space present. Overlying soft tissue is unremarkable. IMPRESSION: As above. [facility], , 02/26/2025 11:20 AM
== END | disposition home or self-care (01) ==
LOC: RADXRYALE 11:02
PROVIDERS: ATTEND Physician Assistant
DX: M25.842 Other specified joint disorders, left hand (principal)

== ENCOUNTER 2025-06-22 07:34 | Emergency (ER) | payer MEDICARE ==
[2025-06-22] MEDS: DIPH,PERTUS(ACELL)TETVAC-LF 0.5 ML VIAL IM ONE (08:02)
[2025-06-22] MEDS: LIDOCAINE 1% INJ 10MG/ML (20 ML MDV) SQ ONE (08:03)
--- NOTE | 2025-06-22 08:54 | ED ---
General Adult HPI <Keena Alicea - Last Filed: 06/22/25 09:18> - General Source: patient, RN notes reviewed, old records reviewed Mode of arrival: ambulatory Limitations: no limitations <Bora Carlisle - Last Filed: 06/22/25 13:57> - General Chief complaint: Extremity Injury, Upper Stated complaint: IHS-L hand finger injury Time Seen by Provider: 06/22/25 07:40 - History of Present Illness Initial comments: 69-year-old male who presents emergency department for a left hand injury. 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 Suffered an injury to the distal tip. Bleeding occurred. Is currently controlled. He is not up-to-date on tetanus. He has no antibiotic allergies. Still able to move the finger. Denies any other injuries. Presents for further evaluation at this time. Past medical history includes hypertension is not on blood thinners. (Bora Carlisle) - Related Data Home Medications Medication Instructions Recorded Confirmed Losartan [Cozaar] 25 mg BID 12/28/16 11/02/19 Aspirin [Adult Low Dose Aspirin EC] 81 mg PO DAILY 10/26/19 11/02/19 Atorvastatin [Lipitor] 10 mg PO HS 10/26/19 11/02/19 Previous Rx's Medication Instructions Recorded HYDROcodone/APAP 5-325MG [[place] 5] 1 each PO Q4HR PRN #42 tab 11/02/19 Cephalexin [Keflex] 500 mg PO Q12HR 7 Days #14 cap 06/22/25 Allergies Allergy/AdvReac Type Severity Reaction Status Date / Time prednisone AdvReac Hallucinati Verified 06/22/25 07:39 ons Review of Systems ROS Other: All systems not noted in ROS Statement are negative. <Keena Alicea - Last Filed: 06/22/25 09:18> ROS Other: All systems not noted in ROS Statement are negative. <Bora Carlisle - Last Filed: 06/22/25 13:57> ROS Statement: Those systems with pertinent positive or pertinent negative responses have been documented in the HPI. Review of Systems: CONST: Denies fever EYES: Denies blurry vision ENT: Denies nasal congestion C/V: Denies Chest pain RESP: Denies shortness of breath GI: Denies abdominal pain : Denies dysuria SKIN: Endorses left third digit injury to the tip of the finger with laceration and bleeding. MSK: Denies joint pain. NEURO: Denies headache (Bora Carlisle) Past Medical History Past Medical History: No Reported History, Hypertension Additional Past Medical History / Comment(s): Vertigo, low back pain, L ear had viral infection which caused hearing damage-hear little with this ear. History of Any Multi-Drug Resistant Organisms: None Reported Past Surgical History: Hernia Repair, Orthopedic Surgery Additional Past Surgical History / Comment(s): R inguinal hernia repair, R ankle fracture with ORIF, R shoulder arthroscopy, R knee arthroscopy, R thumb surgery. Past Anesthesia/Blood Transfusion Reactions: Postoperative Nausea & Vomiting (PONV) Past Psychological History: No Psychological Hx Reported Smoking Status: Never smoker Past Alcohol Use History: None Reported Past Drug Use History: None Reported - Past Family History Father Family Medical History: Myocardial Infarction (MA) Additional Family Medical History / Comment(s): Father had a MA in his 60's. Mother Family Medical History: CVA/TIA, Hypertension Additional Family Medical History / Comment(s): Mother had heart problems. She had a CVA in her 50's. She at the age of 76yrs. <Bora Carlisle - Last Filed: 06/22/25 13:57> General Exam Limitations: no limitations <Bora Carlisle - Last Filed: 06/22/25 13:57> - General Exam Comments Initial Comments: General: Appears in no acute distress. HEAD: Normal with no signs of head trauma. EYES: EOMI. ENT: Hearing grossly intact. RESPIRATORY: No respiratory distress. C/V: Regular rate and rhythm. ABD: Abdomen is nondistended. EXT: No obvious deformity. Injury to the distal tip of the third digit. Neurovascular intact throughout. SKIN: Laceration to the distal tip of the left third digit with bleeding currently controlled. Peers to involve some of the fingernail. No obvious bone exposure. Neurovasc intact throughout. NEURO: Alert and oriented. (Bora Carlisle) Course Vital Signs 06/22/25 06/22/25 06/22/25 07:35 09:12 10:07 Temperature 97.8 F 98 F 98 F Pulse Rate 58 L 68 65 Respiratory 18 16 16 Rate Blood Pressure 160/88 118/70 120/76 O2 Sat by Pulse 98 98 98 Oximetry Procedures - Laceration Laceration #1 Consent Obtained: verbal consent Indication: laceration Site: upper extremity Size (cm): 2 Description: avulsion Depth: simple, single layer Anesthetic Used: lidocaine 1%, without epi Anesthesia Technique: nerve block Amount (mls): 8 Pre-repair: wound explored, irrigated extensively, deep structures intact Type of Sutures: nylon Size of Sutures: 5-0 Number of Sutures: 3 Technique: simple, interrupted Patient Tolerated Procedure: well, no complications <Keena Alicea - Last Filed: 06/22/25 09:18> Medical Decision Making <Bora Carlisle - Last Filed: 06/22/25 13:57> - Medical Decision Making Was pt. sent in by a medical professional or institution (Dr. PA, SAMPLE EXAMINER, urgent care, hospital, or correction...) When possible be specific @ -No Did you speak to anyone other than the patient for history (EMS, parent, family, police, friend...)? What history was obtained from this source @ -No Did you review nursing and triage notes (agree or disagree)? Why? @ -I reviewed and agree with nursing and triage notes Were old charts reviewed (outside hosp., previous admission, EMS record, old EKG, old radiological studies, urgent care reports/EKG's, correction records)? Report findings @ -No old charts were reviewed Differential Diagnosis (chest pain, altered mental status, abdominal pain women, abdominal pain men, vaginal bleeding, weakness, fever, dyspnea, syncope, headache, dizziness, GI bleed, back pain, seizure, CVA, palpatations, mental health, musculoskeletal)? @ -Finger fracture, finger laceration, open fracture. This list is not all- inclusive. EKG interpreted by me (3pts min.). @ -None done X-rays interpreted by me (1pt min.). @ -Left hand x-ray shows soft tissue injury but no obvious bony traumatic injury to the left third digit. CT interpreted by me (1pt min.). @ -None done U/S interpreted by me (1pt. min.). @ -None done What testing was considered but not performed or refused? (CT, X-rays, U/S, labs)? Why? @ -None What meds were considered but not given or refused? Why? @ -None Did you discuss the management of the patient with other professionals (dontrell howell i.e. , PA, SAMPLE EXAMINER, lab, RT, psych nurse, social media coordinator, design chief, teacher, dental officer, leather case finisher)? Give summary @ -No Was smoking cessation discussed for >3mins.? @ -No Was critical care preformed (if so, how long)? @ -No Were there social determinants of health that impacted care today? How? (Homelessness, low income, unemployed, alcoholism, drug addiction, transportation, low edu. Level, literacy, decrease access to med. care, [facility], rehab)? @ -No Was there de-escalation of care discussed even if they declined (Discuss DNR or withdrawal of care, Hospice)? DNR status @ -No What co-morbidities impacted this encounter? (DM, HTN, Smoking, COPD, CAD, Cancer, CVA, ARF, Chemo, Hep., AIDS, mental health diagnosis, sleep apnea, morbid obesity)? @ -None Was patient admitted / discharged? Hospital course, mention meds given and route, prescriptions, significant lab abnormalities, going to OR and other pertinent info. @ -Patient presents with injury to the distal left third fingertip. Seem to be a crush injury and seems to have removed some of the skin from the distal fingertip. There is concern for possible open fracture. Therefore IV was started and patient administered Ancef. Bleeding is controlled. Will obtain x- ray, update tetanus, and clean out the wound and possibly close it. Patient was in agreement this plan. Vitals are within acceptable limits. X-ray shows soft tissue injury only, no evidence of bony traumatic injury. Laceration closed by assisting midlevel provider. See her note above. I update the patient. He is feeling improved. He will be discharged home on antibiotics. He is given a starter pack tomorrow 3. Strict return precautions discussed. Sutures can be removed in 7 to 10 days. I will provide the patient with a prescription for Keflex. I instructed the patient to follow up with their PCP in the next 1-3 days.. I explained that the patient should return to the emergency department if they experience any worsening symptoms. Strict return precautions were discussed with the patient. The patient expressed understanding of these instructions. I answered all questions that the patient had. The patient was discharged home in good condition with their prescriptions and follow up information. Undiagnosed new problem with uncertain prognosis? @ -No Drug Therapy requiring intensive monitoring for toxicity (Heparin, Nitro, Insulin, Cardizem)? @ -No Were any procedures done? @ -Laceration repair Diagnosis/symptom? @ -Laceration of the left middle finger closed with stitches Acute, or Chronic, or Acute on Chronic? @ -Acute Uncomplicated (without systemic symptoms) or Complicated (systemic symptoms)? @ -Uncomplicated Side effects of treatment? @ -None Exacerbation, Progression, or Severe Exacerbation] @ -No Poses a threat to life or bodily function? @ -Unlikely at this time (Bora Carlisle) Disposition <Keena Alicea - Last Filed: 06/22/25 09:18> Is patient prescribed a controlled substance at d/c from ED?: No Time of Disposition: 09:50 <Bora Carlisle - Last Filed: 06/22/25 13:57> Clinical Impression: Laceration of left middle finger Disposition: HOME SELF-CARE Condition: Good Instructions (If sedation given, give patient instructions): Finger Laceration (ED) Prescriptions: Cephalexin [Keflex] 500 mg PO Q12HR 7 Days #14 cap Referrals: Ascencion Connolly DO [Primary Care Provider] - 1-2 days
--- NOTE | 2025-06-22 09:01 | XR ---
EXAMINATION TYPE: XR hand complete LT DATE OF EXAM: 06/22/2025 8:44 AM COMPARISON: 02/26/2025 CLINICAL INDICATION: Male, 69 years old with history of left 3rd digit injury, pain TECHNIQUE: 3 view(s) obtained. FINDINGS: No acute fracture or dislocation evident. Is likely an old fracture of the fifth metacarpal. Joint sp aces have mild diffuse narrowing. Some soft tissue injury may be at the pad and distal aspect of the middle finger. Follow up exams can be performed 7-10 days from acute trauma for continued pain. IMPRESSION: 1. No acute osseous abnormality left hand. 2. Soft tissue injury distal third digit [facility], Workstation: [facility], 06/22/2025 8:58 AM
[2025-06-22 09:13] VITALS: RESP 16; TEMP 98
[2025-06-22] MEDS: BACITRACIN OINT 1 EACH PACKET TOPICAL ONE (10:03)
[2025-06-22 10:08] VITALS: BP 120/76; PULSE 65
== END 2025-06-22 10:07 | disposition home or self-care (01) ==
LOC: EC 07:34
DX: S61.213A Laceration without foreign body of left middle finger without damage to nail, initial encounter (principal); Z88.8 Allergy status to other drugs, medicaments and biological substances; Z23 Encounter for immunization; W23.0XXA Caught, crushed, jammed, or pinched between moving objects, initial encounter
CPT/HCPCS: 73130; 90715; 99283; 96365; 90471; 12001; J0690; J2003